=== PATIENT | female | born 1960 | race African-American/Black ===

== ENCOUNTER 2017-10-22 07:16 | Day surgery (SDC) | payer OTHER ==
[2017-10-17 16:59] VITALS: BMI 35.2
[2017-10-22 09:43] VITALS: TEMP 98.2
[2017-10-22 09:56] VITALS: BP 126/72; PULSE 62
== END 2017-10-22 09:57 | disposition home or self-care (01) ==
LOC: FASU-ENDO 07:16
PROVIDERS: ATTEND Internal Medicine Gastroenterology
PROC: 0DBM8ZX Excision of Descending Colon, Via Natural or Artificial Opening Endoscopic, Diagnostic (ICD-10-PCS; principal; 2017-10-22)
PROC: 0DBC8ZX Excision of Ileocecal Valve, Via Natural or Artificial Opening Endoscopic, Diagnostic (ICD-10-PCS; 2017-10-22)
DX: Z86.010 Personal history of colon polyps (principal); Z80.0 Family history of malignant neoplasm of digestive organs; K63.5 Polyp of colon; K52.89 Other specified noninfective gastroenteritis and colitis; K57.30 Diverticulosis of large intestine without perforation or abscess without bleeding; D17.79 Benign lipomatous neoplasm of other sites
CPT/HCPCS: 82962; 88305-TC